=== PATIENT | female | born 1950 | race Caucasian/White ===

== ENCOUNTER 2016-11-16 10:56 | Emergency (ER) | payer OTHER ==
--- NOTE | 2016-11-16 12:21 | DIAGNOSTIC IMAGING REPORT ---
PROCEDURE: XR SHOULDER 2 OR MORE VW-RIGHT INDICATION: TRAUMA/INJURY TECHNIQUE: Three views. COMPARISON: None. FINDINGS: Osseous structures and joint spaces are normal. IMPRESSION: 1. Normal right shoulder.
--- NOTE | 2016-11-16 12:25 | DIAGNOSTIC IMAGING REPORT ---
PROCEDURE: XR FINGER - LEFT INDICATION: TRAUMA/INJURY TECHNIQUE: Four views. COMPARISON: None. FINDINGS: Dislocation involving the second proximal interphalangeal joint. On the AP view there is a small bone fragment measuring 3 mm. IMPRESSION: 1. Dislocation second PIP joint with a small 3 mm avulsion fracture.
--- NOTE | 2016-11-16 12:26 | DIAGNOSTIC IMAGING REPORT ---
PROCEDURE: XR KNEE 4 VIEWS - LEFT INDICATION: TRAUMA/INJURY TECHNIQUE: Four views. COMPARISON: None. FINDINGS: Osseous structures and joint spaces are normal. IMPRESSION: 1. Normal left knee.
--- NOTE | 2016-11-16 12:50 | DIAGNOSTIC IMAGING REPORT ---
PROCEDURE: XR WRIST MIN 3 VIEWS - RIGHT INDICATION: TRAUMA/INJURY TECHNIQUE: Three views of the right wrist. COMPARISON: None. FINDINGS: Normal mineralization. No fractures. Normal osseous alignment. 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 IMPRESSION: 1. No fracture or dislocation
--- NOTE | 2016-11-16 14:12 | ED ORDER SUMMARY ---
..... Patient: JUAN ALBERTO FARMER OrderSheet [facility] VisitID: [id number] [address] [place] [address] 66y, F Registration Date/Time: 11/16/2016 ORDER SHEET Weight: 61.2 kg (stated) Allergies: Sulfa Antibiotics GENERAL ORDERS: Knee 4V Left Urgent (11:14 11/16/2016 Jayson Valerio) (Ack 11:35 LNations ER Tech1) (11:57 LNations ER Tech1) Finger Left (2nd) Urgent (11:11/16/2016 Jayson Valerio) (Ack 11:36 LNations ER Tech1) (11:57 LNations ER Tech1) Wrist 3 or 4V Right Urgent (11:11/16/2016 Jayson Valerio) (Ack 11:36 LNations ER Tech1) (11:57 LNations ER Tech1) Shoulder 2V or more Right Urgent (11:11/16/2016 Jayson Valerio) (Ack 11:36 LNations ER Tech1) (11:57 LNations ER Tech1) Finger Left (2nd) (post reduction) Urgent (13:12 11/16/2016 Jayson Valerio) (Ack 13:14 LNations ER Tech1) (13:39 LNations ER Tech1) MEDICATION ORDERS: Zofran ODT PO 4 mg (NOW) (11:16 11/16/2016 Jayson Valerio) (Cancelled: Physician Order11:27 Jayson Valerio) Sensorcaine Injection 0.5 % (soln) (NOW) (12:11/16/2016 Jayson Valerio) (12:32 KKnebel R.N.) Lidocaine Injection 2 % (soln) (NOW) (12:11/16/2016 Jayson Valerio) (12:32 KKnebel R.N.) IV FLUIDS: Morphine IV 4 mg (HIGH ALERT MEDICATION, NOW) (11:16 11/16/2016 Jaysno Valerio) (11:23 KKnebel R.N.) Zofran IV 4 mg (NOW) (11:11/16/2016 Jayson Valerio) (11:31 KKnebel R.N.) ORDER SHEET NOTES: [Electronically signed by Park Maravilla R.N. (14:32 11/16/2016)] [Electronically signed by Bryce Dias Dr. (00:13 11/18/2016)] [Electronically locked/signed by Park Maravilla R.N. (14:32 11/16/2016)]
--- NOTE | 2016-11-16 14:12 | ED NURSING NOTES ---
Clinical Report - Nurses [facility] [address] [place] [address] 11/16/2016 10:59 [id number] Triage time 11:Nov 16 2016. Chief Complaint: FALL, onto the ground (fell off horse). Alert. No acute distress. MAKENNA COMA SCORE: [place] Coma Scale: 15- eyes open spontaneously (4); best verbal response- oriented x 4 (5); best motor response- obeys commands (6). --11:07 Park Maravilla R.N. 11:02 11/16/16. BP: 210/96. HR: 81. RR: 20. O2 saturation: 98%. Temp: 98.4 F. Pain level now: 12/07. --11:07 Park Maravilla R.N. Weight: 61.2 kg stated. Height/Length: 63 inches Per Patient. BMI: 23.9. --11:05 Park Maravilla R.N. Medications None. --11:03 Park Maravilla R.N. Medication/allergy information source: the patient. --11:07 Park Maravilla R.N. Allergies Sulfa Antibiotics. --11:04 Park Maravilla R.N. History Arrived by private vehicle. Historian: patient. Accompanied by friend. Location of injuries: right shoulder, left hand and left knee. This occurred just prior to arrival. She has had moderate extremity pain. No loss of consciousness. No neck pain or back pain. No injury to the right hand. Treatment [employer]: Took ibuprofen. PAST MEDICAL HX: Tetanus status: up-to-date. Immunizations: up-to-date. The patient is post-menopausal. Denies current . SOCIAL HX: Never smoker. No alcohol use or drug use. No infectious disease exposure. SELF HARM ASSESSMENT: A self harm assessment was performed. The patient answered "no" to the question "Do you have thoughts of harming or killing yourself?". FALL RISK ASSESSMENT: Fall risk assessment completed. No fall risk identified. NUTRITIONAL RISK ASSESSMENT: The nutritional risk assessment revealed no deficiencies. FUNCTIONAL ASSESSMENT: Functional assessment: no impairments noted. LEARNING NEEDS ASSESSMENT: The learning needs assessment revealed no barriers. ABUSE ASSESSMENT: Abuse assessment: The patient was asked "Do you feel safe in your home?". SKIN INTEGRITY ASSESSMENT: Skin integrity risk assessment completed. No skin integrity risk identified. --11:07 Park Maravilla R.N. ADDITIONAL SURGERIES: None. --11:04 Park Maravilla R.N. Interventions ID band on patient. To room. --11:07 Park Maravilla R.N. PHYSICAL ASSESSMENT To room via wheelchair. GENERAL / NEURO / PSYCH: Alert. Oriented X 4. Appears in pain. HEENT: Head: signs of head trauma present (right jaw feels "locked up"). Head: tenderness localized to the mouth. RESPIRATORY: Respirations not labored. Chest nontender. CVS: Pulses within normal limits. Capillary refill less than 2 seconds and is greater than 2 seconds. GI / : Abdomen soft and nontender. EXTREMITIES: Limited ROM present. Right shoulder: tenderness. Right hand: tenderness, swelling, abrasion and deformity. Left hand: tenderness, swelling and abrasion. Right knee: abrasion. Left knee: tenderness, swelling and abrasion. SKIN: Skin is warm and dry. ( scrapes to bilateral hands and knees). --11:10 Park Maravilla R.N. NURSING PROGRESS NOTES Patient gowned. Patient identifiers checked. Call light placed in reach. Side rails up. Bed placed in lowest position. Brakes of bed on. --11: Park Maravilla R.N. 11:13 11/16/2016 Site #1 started via IV in the left antecubital space with an 20g angiocath, with aseptic technique and good blood return; one attempt. Blood drawn: rainbow set. Labeled in the presence of the patient and sent to the lab. Saline lock flushed with 10 mL saline. --11:23 Park Maravilla R.N. 11:23 11/16/2016 Morphine IVP 4 mg given over 2 minute(s) via site #1. Allergies verified, confirmed 5 rights and sedative warning given to the patient. IV patency established. IV site checked: no pain, redness, or swelling. IV flushed thoroughly pre- and post-medication administration. IVP given by RN. --11:23 Park Maravilla R.N. 11:23 11/16/2016 Zofran (Ondansetron HCl) IVP 4 mg given over 2 minute(s) via site #1. Allergies verified and confirmed 5 rights. IV patency established. IV site checked: no pain, redness, or swelling. IV flushed thoroughly pre- and post-medication administration. IVP given by RN. --11:31 Park Maravilla R.N. Patient returned from radiology with tech. --11:57 Yissel Levy ER Tech1 12:04 11/16/16. BP: 164/83. HR: 64. RR: 8. O2 saturation: 99%. Pain level now: 12/07. --12:05 Park Maravilla R.N. Patient returned from radiology by stretcher with tech. (12:00 Nov 16 2016). --12:05 Park Maravilla R.N. 12:32 11/16/2016 Sensorcaine (Bupivacaine HCl) Injection Injectable. Allergies verified and confirmed 5 rights. --12:32 Park Maravilla R.N. 12:32 11/16/2016 Lidocaine Injection Injectable. Allergies verified and confirmed 5 rights. --12:32 Park Maravilla R.N. Wound cleansed with sterile saline. Applied dressing consisting of 4x4 gauze, following the application of antibiotic ointment. Secured with tape. Finger splint applied to left index finger by nurse. Sensation intact. Reassessment after procedure. Overall patient status is improved- she states feels better. GENERAL / NEURO / PSYCH: Alert. Oriented X 4. RESPIRATORY: No respiratory distress. CVS: Capillary refill less than 2 seconds. --13:45 Park Maravilla R.N. Sling applied to right arm; distal pulses intact and sensation intact. Not by nurse. --13:56 Park Maravilla R.N. 14:10 11/16/2016 Site #1 removed upon discharge. Bandage applied. --14:31 Park Maravilla R.N. DISPOSITION / DISCHARGE Departure time: 14:15 Nov 16 2016. Condition at departure: improved. No learning barriers present. Discharge instructions provided and reviewed with the patient. Reviewed medication(s) side effects, precautions, dosing and course information. Prescription(s) given to the patient. Reviewed referral to an orthopedic surgeon for followup. Patient verbalized understanding. Written instructions provided in Turkmen. The patient was discharged home and accompanied by spouse. She left the Emergency Department ambulatory and via private vehicle. Spouse driving. FALL RISK ASSESSMENT: Fall risk assessment completed. No fall risk identified. --14:30 Park Maravilla R.N. 14:29 11/16/16. BP: 147/81. HR: 76. RR: 17. O2 saturation: 96%. Pain level now: 09/07. --14:30 Park Maravilla R.N. Locked/Released at 11/16/2016 14:32 by Park Maravilla R.N.
--- NOTE | 2016-11-16 14:12 | ED CLINICAL REPORT ---
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 Arrived- By ambulance. Historian- patient. HISTORY OF PRESENT ILLNESS Chief Complaint: FALL and INJURY TO RIGHT UPPER EXTREMITY (SHOULDER and WRIST), RIGHT LOWER EXTREMITY (THIGH), LEFT UPPER EXTREMITY (HAND) and LEFT LOWER EXTREMITY (KNEE). The injury occurred just prior to arrival. Fell off a horse and landed on the ground. Occurred at an athletic field. The patient complains of moderate pain. The patient sustained a blow to the head. No neck pain or loss of consciousness. Not dazed. REVIEW OF SYSTEMS No numbness, dizziness, loss of vision, chest pain or difficulty breathing. No headache, nausea, abdominal pain, laceration or vomiting. No back pain or neck pain. She has had moderate joint pain with swelling, involving the right shoulder, right knee, left hand and left knee. All systems otherwise negative, except as recorded above. PAST HISTORY Tetanus immunization status is up-to-date. Medications: None. Allergies: Sulfa Antibiotics. SOCIAL HISTORY Never smoker. No alcohol use or drug use. ADDITIONAL NOTES The nursing notes have been reviewed. PHYSICAL EXAM Vital Signs: 11/16/2016 11:02 BP: 210/96. HR: 81. RR: 20. O2 saturation: 98%. Temp: 98.4 F. Pain level now: 7/10. Have been reviewed. Hypertensive. Heart rate normal. Respiratory rate normal. Temperature normal. Oxygen saturation normal. Appearance: Alert. Oriented X3. No acute distress. Head: Head non-tender. No swelling of head. Eyes: Pupils equal, round and reactive to light. ENT: No dental injury. Pharynx normal. Neck: Painless ROM. Non-tender. CVS: Heart sounds normal. Pulses normal. Respiratory: Breath sounds normal. Chest nontender. Abdomen: No visible injury. Soft and nontender. Bowel sounds normal. Back: No tenderness. ROM normal. Skin: The patient has multiple small superficial abrasions. Extremities: Right shoulder: moderate tenderness. Limited ROM due to pain (diminished abduction, adduction, flexion, extension and external and internal rotation). No abrasion, ecchymosis or deformity. Left hand: moderate tenderness. (3rd and 4th digit). Pelvis stable. Right knee: mild erythema and swelling and moderate tenderness. Limited ROM secondary to pain (diminished flexion and extension). Neurovascular intact distally. No ligamentous laxity present. No joint effusion. No ecchymosis or deformity. Left knee: mild erythema and swelling and moderate tenderness. Limited ROM secondary to pain (diminished flexion and extension). Neurovascular intact distally. No ligamentous laxity present. No deformity. No lower extremity edema. Neuro: Oriented X 3. No motor deficit. No sensory deficit. LABS, X-RAYS, AND EKG Rt Shoulder X-ray: No fracture. Normal alignment. No bony lesion, air in the soft tissue or foreign body. Soft tissues normal. Joint spaces normal. Views: AP with external rotation, AP with internal rotation and "Y" view. Technique: good. The X-rays were independently viewed by me, interpreted by the radiologist and discussed with the radiologist. Prior films were not available for comparison. Rt Wrist X-ray: (No fracture or dislocation). Views: AP, lateral and oblique. Technique: good. The X-rays were independently viewed by me, interpreted by the radiologist and discussed with the radiologist. Prior films were not available for comparison. Lt UE Digits X-ray: (. Dislocation left second PIP joint with a small 3 mm avulsion fracture.). Views: AP, lateral and oblique. Technique: good. The X-rays were independently viewed by me, interpreted by the radiologist and discussed with the radiologist. Prior films were not available for comparison. Lt Knee X-ray: No fracture. Normal alignment. No bony lesion. Soft tissues normal. Joint spaces normal. Views: AP, lateral and oblique. Technique: good. The X-rays were independently viewed by me and interpreted contemporaneously by me. Prior films were not available for comparison. PROGRESS AND PROCEDURES Disposition: Discharged home in good and improved condition. Condition: good. CLINICAL IMPRESSION Multiple contusions to the right shoulder, right wrist and right knee and left knee. Closed middle phalanx fracture of the left index finger (Avulsion). Dislocation of the proximal interphalangeal joint of the left index finger. INSTRUCTIONS Apply ice for 20 minutes four times a day. Don't apply ice directly to skin. Wear aluminum splint until released. Your Current Medications: CONTINUE TAKING THE FOLLOWING MEDICATIONS: None*. Prescription Medications: Hydrocodone/APAP 5mg / 325mg: take 1 orally every 6 hours as needed for pain. Dispense fifteen (15). No refill. Follow-up: Screening today revealed the patient's blood pressure to be in the hypertensive range. The patient should follow up with a primary care provider for blood pressure management. Follow-up with: [facility], , [address], , [place], [id number] Follow up in about two days. Call for an appointment. (Electronically signed by Bryce Dias Dr. 11/18/2016 0:14) Addenda for JUAN ALBERTO FARMER VisitID: [id number] Date: 11/16/2016 11/16/2016 15:21 Called patient at home per Dr. Mahmood request, pt with fractured left middle finger. This was not splinted, pt aware and spoke with patient over the phone and will return to the ER for left middle finger splint placement as soon as she can. (Electronically signed by Vincent Brumfield R.N. - 11/16/2016 15:21) 11/16/2016 18:10 alum. foam spllint added to left middle finger wraped with coban. ointment appliled to inner wrist and covered with a 4 x 4. (Electronically signed by Yissel Levy Tech1 - 11/16/2016 18:10)
--- NOTE | 2016-11-16 14:12 | ED CLINICAL REPORT ---
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 Arrived- By ambulance. Historian- patient. HISTORY OF PRESENT ILLNESS Chief Complaint: FALL and INJURY TO RIGHT UPPER EXTREMITY (SHOULDER and WRIST), RIGHT LOWER EXTREMITY (THIGH), LEFT UPPER EXTREMITY (HAND) and LEFT LOWER EXTREMITY (KNEE). The injury occurred just prior to arrival. Fell off a horse and landed on the ground. Occurred at an athletic field. The patient complains of moderate pain. The patient sustained a blow to the head. No neck pain or loss of consciousness. Not dazed. REVIEW OF SYSTEMS No numbness, dizziness, loss of vision, chest pain or difficulty breathing. No headache, nausea, abdominal pain, laceration or vomiting. No back pain or neck pain. She has had moderate joint pain with swelling, involving the right shoulder, right knee, left hand and left knee. All systems otherwise negative, except as recorded above. PAST HISTORY Tetanus immunization status is up-to-date. Medications: None. Allergies: Sulfa Antibiotics. SOCIAL HISTORY Never smoker. No alcohol use or drug use. ADDITIONAL NOTES The nursing notes have been reviewed. PHYSICAL EXAM Vital Signs: 11/16/2016 11:02 BP: 210/96. HR: 81. RR: 20. O2 saturation: 98%. Temp: 98.4 F. Pain level now: 7/10. Have been reviewed. Hypertensive. Heart rate normal. Respiratory rate normal. Temperature normal. Oxygen saturation normal. Appearance: Alert. Oriented X3. No acute distress. Head: Head non-tender. No swelling of head. Eyes: Pupils equal, round and reactive to light. ENT: No dental injury. Pharynx normal. Neck: Painless ROM. Non-tender. CVS: Heart sounds normal. Pulses normal. Respiratory: Breath sounds normal. Chest nontender. Abdomen: No visible injury. Soft and nontender. Bowel sounds normal. Back: No tenderness. ROM normal. Skin: The patient has multiple small superficial abrasions. Extremities: Right shoulder: moderate tenderness. Limited ROM due to pain (diminished abduction, adduction, flexion, extension and external and internal rotation). No abrasion, ecchymosis or deformity. Left hand: moderate tenderness. (3rd and 4th digit). Pelvis stable. Right knee: mild erythema and swelling and moderate tenderness. Limited ROM secondary to pain (diminished flexion and extension). Neurovascular intact distally. No ligamentous laxity present. No joint effusion. No ecchymosis or deformity. Left knee: mild erythema and swelling and moderate tenderness. Limited ROM secondary to pain (diminished flexion and extension). Neurovascular intact distally. No ligamentous laxity present. No deformity. No lower extremity edema. Neuro: Oriented X 3. No motor deficit. No sensory deficit. LABS, X-RAYS, AND EKG Rt Shoulder X-ray: No fracture. Normal alignment. No bony lesion, air in the soft tissue or foreign body. Soft tissues normal. Joint spaces normal. Views: AP with external rotation, AP with internal rotation and "Y" view. Technique: good. The X-rays were independently viewed by me, interpreted by the radiologist and discussed with the radiologist. Prior films were not available for comparison. Rt Wrist X-ray: (No fracture or dislocation). Views: AP, lateral and oblique. Technique: good. The X-rays were independently viewed by me, interpreted by the radiologist and discussed with the radiologist. Prior films were not available for comparison. Lt UE Digits X-ray: (. Dislocation left second PIP joint with a small 3 mm avulsion fracture.). Views: AP, lateral and oblique. Technique: good. The X-rays were independently viewed by me, interpreted by the radiologist and discussed with the radiologist. Prior films were not available for comparison. Lt Knee X-ray: No fracture. Normal alignment. No bony lesion. Soft tissues normal. Joint spaces normal. Views: AP, lateral and oblique. Technique: good. The X-rays were independently viewed by me and interpreted contemporaneously by me. Prior films were not available for comparison. PROGRESS AND PROCEDURES Disposition: Discharged home in good and improved condition. Condition: good. CLINICAL IMPRESSION Multiple contusions to the right shoulder, right wrist and right knee and left knee. Closed middle phalanx fracture of the left index finger (Avulsion). Dislocation of the proximal interphalangeal joint of the left index finger. INSTRUCTIONS Apply ice for 20 minutes four times a day. Don't apply ice directly to skin. Wear aluminum splint until released. Your Current Medications: CONTINUE TAKING THE FOLLOWING MEDICATIONS: None*. Prescription Medications: Hydrocodone/APAP 5mg / 325mg: take 1 orally every 6 hours as needed for pain. Dispense fifteen (15). No refill. Follow-up: Screening today revealed the patient's blood pressure to be in the hypertensive range. The patient should follow up with a primary care provider for blood pressure management. Follow-up with: [facility], , [address], , [place], [id number] Follow up in about two days. Call for an appointment. (Electronically signed by Bryce Dias Dr. 11/18/2016 0:14) Addenda for JUAN ALBERTO FARMER VisitID: [id number] Date: 11/16/2016 11/16/2016 15:21 Called patient at home per Dr. Mahmood request, pt with fractured left middle finger. This was not splinted, pt aware and spoke with patient over the phone and will return to the ER for left middle finger splint placement as soon as she can. (Electronically signed by Vincent Brumfield R.N. - 11/16/2016 15:21) 11/16/2016 18:10 alum. foam spllint added to left middle finger wraped with coban. ointment appliled to inner wrist and covered with a 4 x 4. (Electronically signed by Yissel Levy Tech1 - 11/16/2016 18:10)
--- NOTE | 2016-11-16 14:12 | ED ORDER SUMMARY ---
..... Patient: JUAN ALBERTO FARMER OrderSheet [facility] VisitID: [id number] [address] [place] [address] 66y, F Registration Date/Time: 11/16/2016 ORDER SHEET Weight: 61.2 kg (stated) Allergies: Sulfa Antibiotics GENERAL ORDERS: Knee 4V Left Urgent (11:14 11/16/2016 Jayson Valerio) (Ack 11:35 LNations ER Tech1) (11:57 LNations ER Tech1) Finger Left (2nd) Urgent (11:11/16/2016 Jayson Valerio) (Ack 11:36 LNations ER Tech1) (11:57 LNations ER Tech1) Wrist 3 or 4V Right Urgent (11:11/16/2016 Jayson Valerio) (Ack 11:36 LNations ER Tech1) (11:57 LNations ER Tech1) Shoulder 2V or more Right Urgent (11:11/16/2016 Jayson Valerio) (Ack 11:36 LNations ER Tech1) (11:57 LNations ER Tech1) Finger Left (2nd) (post reduction) Urgent (13:12 11/16/2016 Jayson Valerio) (Ack 13:14 LNations ER Tech1) (13:39 LNations ER Tech1) MEDICATION ORDERS: Zofran ODT PO 4 mg (NOW) (11:16 11/16/2016 Jayson Valerio) (Cancelled: Physician Order11:27 Jayson Valerio) Sensorcaine Injection 0.5 % (soln) (NOW) (12:11/16/2016 Jayson Valerio) (12:32 KKnebel R.N.) Lidocaine Injection 2 % (soln) (NOW) (12:11/16/2016 Jayson Valerio) (12:32 KKnebel R.N.) IV FLUIDS: Morphine IV 4 mg (HIGH ALERT MEDICATION, NOW) (11:16 11/16/2016 Jayson Valerio) (11:23 KKnebel R.N.) Zofran IV 4 mg (NOW) (11:11/16/2016 Jayson Valerio) (11:31 KKnebel R.N.) ORDER SHEET NOTES: [Electronically signed by Park Maravilla R.N. (14:32 11/16/2016)] [Electronically signed by Bryce Dias Dr. (00:13 11/18/2016)] [Electronically locked/signed by Park Maravilla R.N. (14:32 11/16/2016)]
--- NOTE | 2016-11-16 15:14 | DIAGNOSTIC IMAGING REPORT ---
PROCEDURE: XR FINGER - LEFT INDICATION: DISLOCATION TECHNIQUE: Four views. COMPARISON: None. FINDINGS: Status post reduction of the second digit dislocation. There is also a chip fracture off the base of the middle phalanx of the third digit. This is best seen on the lateral view. IMPRESSION: 1. Reduction of second digit dislocation. Chip fracture off the base of the middle phalanx of the third digit. Results were called to Dr. Dias.
--- NOTE | 2016-11-18 00:14 | ED MAR SUMMARY ---
..... Medication Administration Record [facility] [address] [place] [address] Patient: JUAN ALBERTO FARMER Visit ID: [id number] 66y, F Weight: 61.2 kg Height/Length: 63 in BMI: 23.9 ALLERGIES: Sulfa Antibiotics Given :11/16/2016 Park Maravilla R.N. Medication Administered: MORPHINE [IVP], Dose: 4 mg IVP over 2 minute(s), Site: #1 left AC. Medication Ordered: Morphine IV 4 mg (HIGH ALERT MEDICATION, NOW). Given 11/16/2016 Park Maravilla R.N. Medication Administered: ZOFRAN [IVP] (ONDANSETRON HCL), Dose: 4 mg IVP over 2 minute(s), Site: #1 left AC. Medication Ordered: Zofran IV 4 mg (NOW). Given :11/16/2016 Park Maravilla R.N. Medication Administered: SENSORCAINE [INJECTION] (BUPIVACAINE HCL), Dose: Injectable Injection. Medication Ordered: Sensorcaine Injection 0.5 % (soln) (NOW). Given :11/16/2016 Park Maravilla R.N. Medication Administered: LIDOCAINE [INJECTION], Dose: Injectable Injection. Medication Ordered: Lidocaine Injection 2 % (soln) (NOW).
--- NOTE | 2016-11-18 00:14 | ED MED RECONCILIATION SUMMARY ---
Patient: JUAN ALBERTO FARMER Medication Reconciliation Report [facility] VisitID: [id number] [address] [place] [address] 66y, F Registration Date/Time: 11/16/2016 Weight: 61.2 kg Height/Length: 63 in. BMI: 23.9 ALLERGIES: Sulfa Antibiotics The patient's Home Medications are listed below: NONE. The source(s) of the original Home Medication information: patient The following Medications were given to the patient in the Emergency Department: Morphine [IVP] IVP 4 mg, administered: 11/16/2016 11:23:00 AM Zofran [IVP] IVP 4 mg, administered: 11/16/2016 11:23:00 AM Sensorcaine [Injection] Injection, administered: 11/16/2016 12:32:00 PM Lidocaine [Injection] Injection, administered: 11/16/2016 12:32:00 PM The following Medications were prescribed to the patient: Hydrocodone/APAP 5mg / 325mg: take 1 orally every 6 hours as needed for pain. Dispense fifteen (15). No refill. -- Bryce Dias Dr.
--- NOTE | 2016-11-18 00:14 | ED MAR SUMMARY ---
..... Medication Administration Record [facility] [address] [place] [address] Patient: JUAN ALBERTO FARMER Visit ID: [id number] 66y, F Weight: 61.2 kg Height/Length: 63 in BMI: 23.9 ALLERGIES: Sulfa Antibiotics Given :11/16/2016 Park Maravilla R.N. Medication Administered: MORPHINE [IVP], Dose: 4 mg IVP over 2 minute(s), Site: #1 left AC. Medication Ordered: Morphine IV 4 mg (HIGH ALERT MEDICATION, NOW). Given 11/16/2016 Park Maravilla R.N. Medication Administered: ZOFRAN [IVP] (ONDANSETRON HCL), Dose: 4 mg IVP over 2 minute(s), Site: #1 left AC. Medication Ordered: Zofran IV 4 mg (NOW). Given :11/16/2016 Park Maravilla R.N. Medication Administered: SENSORCAINE [INJECTION] (BUPIVACAINE HCL), Dose: Injectable Injection. Medication Ordered: Sensorcaine Injection 0.5 % (soln) (NOW). Given :11/16/2016 Park Maravilla R.N. Medication Administered: LIDOCAINE [INJECTION], Dose: Injectable Injection. Medication Ordered: Lidocaine Injection 2 % (soln) (NOW).
--- NOTE | 2016-11-18 00:14 | ED MED RECONCILIATION SUMMARY ---
Patient: JUAN ALBERTO FARMER Medication Reconciliation Report [facility] VisitID: [id number] [address] [place] [address] 66y, F Registration Date/Time: 11/16/2016 Weight: 61.2 kg Height/Length: 63 in. BMI: 23.9 ALLERGIES: Sulfa Antibiotics The patient's Home Medications are listed below: NONE. The source(s) of the original Home Medication information: patient The following Medications were given to the patient in the Emergency Department: Morphine [IVP] IVP 4 mg, administered: 11/16/2016 11:23:00 AM Zofran [IVP] IVP 4 mg, administered: 11/16/2016 11:23:00 AM Sensorcaine [Injection] Injection, administered: 11/16/2016 12:32:00 PM Lidocaine [Injection] Injection, administered: 11/16/2016 12:32:00 PM The following Medications were prescribed to the patient: Hydrocodone/APAP 5mg / 325mg: take 1 orally every 6 hours as needed for pain. Dispense fifteen (15). No refill. -- Bryce Dias Dr.
--- NOTE | 2016-11-18 00:14 | ED DISCHARGE INSTRUCTIONS ---
Patient: JUAN ALBERTO FARMER General Instructions [facility] VisitID: [id number] [address] [place], [place] [id number] 66y, F Registration Date/Time: 11/16/2016 Multiple contusions to the right shoulder, right wrist and right knee and left knee. Closed middle phalanx fracture of the left index finger (Avulsion). Dislocation of the proximal interphalangeal joint of the left index finger. INSTRUCTIONS Apply ice for 20 minutes four times a day. Don't apply ice directly to skin. Wear aluminum splint until released. Your Current Medications: CONTINUE TAKING THE FOLLOWING MEDICATIONS: None*. Prescription Medications: Hydrocodone/APAP 5mg / 325mg: take 1 orally every 6 hours as needed for pain. Dispense fifteen (15). No refill. Follow-up: Screening today revealed the patient's blood pressure to be in the hypertensive range. The patient should follow up with a primary care provider for blood pressure management. Follow-up with: [facility], , [address], , [place], [address] Follow up in about two days. Call for an appointment. ADDITIONAL INFORMATION Contusion,Soft Tissue You have a CONTUSION, which is a bruise with swelling and some bleeding under the skin. There are no broken bones. This injury takes a few days to a few weeks to heal. Home Care: 1) Keep the injured part elevated to reduce pain and swelling. This is especially important during the first 48 hours. 2) Make an ice pack (ice cubes in a plastic bag, wrapped in a towel) and apply for 20 minutes every 1-2 hours the first day. Continue this 3-4 times a day until the pain and swelling goes away. 3) You may use acetaminophen (Tylenol) or ibuprofen (Motrin, Advil) to control pain, unless another pain medicine was prescribed. [ NOTE : If you have chronic liver or kidney disease or ever had a stomach ulcer or GI bleeding, talk with your doctor before using these medicines.] Follow Up with your doctor or this facility if you are not improving within the next THREE days. [NOTE: If X-rays were taken, they will be reviewed by a radiologist. You will be notified of any new findings that may affect your care.] Get Prompt Medical Attention if any of the following occur: -- Pain or swelling increases -- Injured arm or leg becomes cold, blue, numb or tingly -- Redness, warmth or drainage from the skin Dislocation:Finger [Reduced] A dislocated finger occurs when the ligaments that hold the joint together are torn allowing the bones to move apart and become stuck out of place. This causes pain, swelling, and bruising. Sometimes there is also a small "chip" fracture. Once the joint is aligned again, it will take about six weeks for the ligaments to heal. During this time, the finger should be protected from re-injury. "Nuria Tape" secures the injured finger to the one next to it. Nuria tape allows motion of the joint, while protecting it from dislocating again. Nuria tape can be left in place for up to six weeks. Hand exercises may be prescribed at your follow-up visit to speed healing and maintain function. Most finger dislocations regain full function. But, it may take 12-18 months before all discomfort and swelling go away and full function returns. Home Care: 1) Keep your hand elevated to reduce pain and swelling. When sitting or lying down elevate your arm above the level of your heart. You can do this by placing your arm on a pillow that rests on your chest or on a pillow at your side. This is most important during the first 48 hours after injury. 2) Apply an ice pack (ice cubes in a plastic bag, wrapped in a towel) over the injured area for 20 minutes every 1-2 hours the first day. Continue with ice packs 3-4 times a day for the next two days, then as needed for the relief of pain and swelling. 3) If you have a removable splint , you may take it off to bathe, then reapply it. If you have a permanent splint , cover the entire hand with a plastic bag and seal it at the top with a rubber band before bathing. 4) If nuria tape was applied and it becomes wet or dirty, change it. You may replace it with paper, plastic or cloth tape. Cloth tape and paper tapes must be kept dry. 6) You may use acetaminophen (Tylenol) or ibuprofen (Motrin, Advil) to control pain, unless another pain medicine was prescribed. [ NOTE : If you have chronic liver or kidney disease or ever had a stomach ulcer or GI bleeding, talk with your doctor before using these medicines.] 7) No sports or P.E. until cleared by your doctor. Follow Up with your doctor in one week or as advised. Splints should not be left in place longer than three weeks to avoid stiffness and loss of joint function. It is important that you see the referral doctor to determine how long to your splint in place and when to begin hand exercises. [NOTE: Any X-rays taken will be reviewed by a radiologist. You will be notified of any new findings that may affect your care.] Get Prompt Medical Attention if any of the following occur: -- Pain or swelling increases -- Redness, warmth or drainage of the injured finger -- Finger becomes cold, blue, numb or tingly Fracture: Finger [Closed] You have a fracture of your finger (broken finger). This causes local pain, swelling and bruising. This injury takes about four weeks to heal. Finger injuries are often treated with a splint, cast or by taping the injured finger to the next one ("nuria taping"). This protects the injured finger and holds the bone in position while it heals. More serious fractures may require surgery. If the FINGERNAIL has been severely injured, it will probably fall off in 1-2 weeks. A new fingernail will usually start to grow back within a month. Home Care: 1) Keep your hand elevated to reduce pain and swelling. When sitting or lying down elevate your arm above the level of your heart. You can do this by placing your arm on a pillow that rests on your chest or on a pillow at your side. This is most important during the first 48 hours after injury. 2) Apply an ice pack (ice cubes in a plastic bag, wrapped in a towel) over the injured area for 20 minutes every 1-2 hours the first day for pain relief. Continue this 3-4 times a day until the pain and swelling goes away. 3) Keep the cast/splint completely dry at all times. Bathe with your cast/splint out of the water, protected with a large plastic bag, rubber-banded at the top end. If a fiberglass cast/splint gets wet, you can dry it with a hair-dryer. 4) If nuria tape was applied and it becomes wet or dirty, change it. You may replace it with paper, plastic or cloth tape. Cloth tape and paper tapes must be kept dry. Keep the nuria tape in place for at least four weeks. 5) You may use acetaminophen (Tylenol) or ibuprofen (Motrin, Advil) to control pain, unless another pain medicine was prescribed. [ NOTE : If you have chronic liver or kidney disease or ever had a stomach ulcer or GI bleeding, talk with your doctor before using these medicines.] Follow Up with your doctor within one week, or as advised by our staff, to be sure the bone is healing properly, . [NOTE: A radiologist will review any X-rays that were taken. We will notify you of any new findings that may affect your care.] Get Prompt Medical Attention if any of the following occur: -- The plaster cast or splint becomes wet or soft -- The fiberglass cast or splint remains wet for more than 24 hours -- Pain or swelling increases -- Redness, warmth, swelling, drainage from the wound or foul odor from a cast or splint -- Finger becomes more cold, blue, numb or tingly Hydrocodone Bitartrate, Acetaminophen Oral tablet What is this medicine? ACETAMINOPHEN; HYDROCODONE (a set a DEMETRIO kate fen; erika droe KOE done) is a pain reliever. It is used to treat mild to moderate pain. How should I use this medicine? Take this medicine by mouth. Swallow it with a full glass of water. Follow the directions on the prescription label. If the medicine upsets your stomach, take the medicine with food or milk. Do not take more than you are told to take. Talk to your health data analyst regarding the use of this medicine in children. This medicine is not approved for use in children. What side effects may I notice from receiving this medicine? Side effects that you should report to your doctor or health child care education coordinator as soon as possible: allergic reactions like skin rash, itching or hives, swelling of the face, lips, or tongue breathing problems confusion feeling faint or lightheaded, falls stomach pain yellowing of the eyes or skin Side effects that usually do not require medical attention (report to your doctor or health child care education coordinator if they continue or are bothersome): nausea, vomiting stomach upset What may interact with this medicine? alcohol antihistamines isoniazid medicines for depression, anxiety, or psychotic disturbances medicines for sleep muscle relaxants naltrexone narcotic medicines (opiates) for pain phenobarbital ritonavir tramadol What if I miss a dose? If you miss a dose, take it as soon as you can. If it is almost time for your next dose, take only that dose. Do not take double or extra doses. Where should I keep my medicine? Keep out of the reach of children. This medicine can be abused. Keep your medicine in a safe place to protect it from theft. Do not share this medicine with anyone. Selling or giving away this medicine is dangerous and against the law. Store at room temperature between 15 and 30 degrees C (59 and 86 degrees F). Protect from light. Keep container tightly closed. Throw away any unused medicine after the expiration date. Discard unused medicine and used packaging carefully. Pets and children can be harmed if they find used or lost packages. What should I tell my health care provider before I take this medicine? They need to know if you have any of these conditions: brain tumor Crohn's disease, inflammatory bowel disease, or ulcerative colitis drink more than 3 alcohol-containing drinks per day drug abuse or addiction head injury heart or circulation problems kidney disease or problems going to the bathroom liver disease lung disease, asthma, or breathing problems an unusual or allergic reaction to acetaminophen, hydrocodone, other opioid analgesics, other medicines, foods, dyes, or preservatives or trying to get breast-feeding What should I watch for while using this medicine? Tell your doctor or health child care education coordinator if your pain does not go away, if it gets worse, or if you have new or a different type of pain. You may develop tolerance to the medicine. Tolerance means that you will need a higher dose of the medicine for pain relief. Tolerance is normal and is expected if you take the medicine for a long time. Do not suddenly stop taking your medicine because you may develop a severe reaction. Your body becomes used to the medicine. This does NOT mean you are addicted. Addiction is a behavior related to getting and using a drug for a non-medical reason. If you have pain, you have a medical reason to take pain medicine. Your doctor will tell you how much medicine to take. If your doctor wants you to stop the medicine, the dose will be slowly lowered over time to avoid any side effects. You may get drowsy or dizzy when you first start taking the medicine or change doses. Do not drive, use machinery, or do anything that may be dangerous until you know how the medicine affects you. Stand or sit up slowly. There are different types of narcotic medicines (opiates) for pain. If you take more than one type at the same time, you may have more side effects. Give your health care provider a list of all medicines you use. Your doctor will tell you how much medicine to take. Do not take more medicine than directed. Call emergency for help if you have problems breathing. The medicine will cause constipation. Try to have a bowel movement at least every 2 to 3 days. If you do not have a bowel movement for 3 days, call your doctor or health child care education coordinator. Too much acetaminophen can be very dangerous. Do not take Tylenol (acetaminophen) or medicines that contain acetaminophen with this medicine. Many non-prescription medicines contain acetaminophen. Always read the labels carefully. You have been given the following additional information: Contusion, Soft Tissue Dislocated Finger Fracture, Finger (Closed) Hydrocodone Bitartrate, Acetaminophen Oral tablet (Electronically signed by Bryce Dias Dr. 11/18/2016 0:14)
== END 2016-11-16 14:15 | disposition home or self-care (01) ==
LOC: ED SRH 10:56
DX: S62.621A Displaced fracture of middle phalanx of left index finger, initial encounter for closed fracture (principal); S63.281A Dislocation of proximal interphalangeal joint of left index finger, initial encounter; S40.011A Contusion of right shoulder, initial encounter; S60.211A Contusion of right wrist, initial encounter; S80.01XA Contusion of right knee, initial encounter; V80.010A Animal-rider injured by fall from or being thrown from horse in noncollision accident, initial encounter; Y93.52 Activity, horseback riding; Y99.9 Unspecified external cause status; Y92.328 Other athletic field as the place of occurrence of the external cause; Z88.2 Allergy status to sulfonamides